=== PATIENT | female | born 1995 | race Caucasian/White ===

== ENCOUNTER 2021-08-04 21:32 | Inpatient (IN) ==
[2021-08-04] MEDS ORDERED: Lidocaine/Epineph/Tetraca GEL 3 ML GEL IN SYR TOPICAL ONE (22:30)
[2021-08-05 00:39] LABS: Body Fluid Source Cerebral Spinal
[2021-08-05 01:00] LABS: CSF Glucose 56 mg/dL (40-70)
[2021-08-05 01:16] LABS: Body Fluid Appearance Clear; Body Fluid Color Colorless; CSF Tube # 3
[2021-08-05 01:48] LABS: Body Fluid WBC 1 /mcL
[2021-08-05] MEDS ORDERED: methylPREDNISolone 125 mg 2 ML VIAL IV ONE (10:38)
[2021-08-05] MEDS ORDERED: methylPREDNISolone SOD SUCC 1000 MG in NS 0.9% 100 ML IVPB ONE (11:00)
[2021-08-05] MEDS ORDERED: Ondansetron 4 mg VIAL 2 MG/ML 2 ml VIAL IV PRN (11:29)
[2021-08-05 12:23] LABS: ABS Basophils 0.1 10^3/ul (0-0.2); ABS Eosinophils 0.2 10^3/ul (0-0.6); ABS Lymphocytes 3.2 10^3/ul (1.0-4.8); ABS Monocytes 0.7 10^3/ul (0-0.8); ABS Neutrophils 7.6 10^3/ul (1.5-7.7); Eosinophil % 1.6 %; Hematocrit 41 % (35-47); Hemoglobin 14.1 g/dL (12.0-16.0); Mean Corpuscular HGB Conc 34 g/dL (31-36); Mean Corpuscular Hemoglobin 30 pg (27-31); Mean Corpuscular Volume 87 fL (80-97); Mean Platelet Volume 9.4 fL (7.4-10.4); Platelet Count 267 10^3/uL (150-450); Red Blood Count 4.76 10^6 /uL (3.70-4.87); Red Cell Distribution Width 12 % (10-15); White Blood Count 11.8 10^3/uL (3.5-10.8)
[2021-08-05] MEDS ORDERED: Lactated Ringers 1000 ml BAG 1,000 ML IV ONE (12:24)
[2021-08-05 12:40] LABS: ALT 18 U/L (7-52); AST 14 U/L (13-39); Albumin 4.2 g/dL (3.2-5.2); Albumin/Globulin Ratio 1.4 (1-3); Alkaline Phosphatase 66 U/L (35-149); Anion Gap 5 mmol/L (2-11); Blood Urea Nitrogen 13 mg/dL (6-24); CO2 Carbon Dioxide 27 mmol/L (22-32); Calcium 9.5 mg/dL (8.6-10.3); Chloride 106 mmol/L (101-111); Globulin 2.9 g/dL (2-4); Glucose 113 mg/dL (70-100); Potassium 3.7 mmol/L (3.5-5.0); Sodium 138 mmol/L (135-145); Total Protein 7.1 g/dL (6.4-8.9); eGFR CKD-EPI 98.8 (>60)
[2021-08-05 12:55] LABS: Rheumatoid Factor < 10 IU/mL (<15)
[2021-08-05 13:20] LABS: Folate 10.68 ng/mL (5.90-24.80)
[2021-08-05 13:21] LABS: Vitamin B12 312 pg/mL (180-914)
[2021-08-05] MEDS ORDERED: Cholecalciferol (VIT D3) 50,000 UNIT CAP (NF) PO SCH (15:00)
[2021-08-05 15:01] LABS: Erythrocyte Sed Rate 19 mm/Hr (0-19)
[2021-08-06] MEDS: methylPREDNISolone SOD SUCC 1,000 MG in NS 0.9% 250 ml 250 ML IVPB SCH (08:52)
[2021-08-06] MEDS ORDERED: Polyethylene Glycol 3350 17 GM PACKET PO PRN (14:32)
[2021-08-07] MEDS: methylPREDNISolone SOD SUCC 1,000 MG in NS 0.9% 250 ml 250 ML IVPB SCH (08:33)
[2021-08-07 11:49] VITALS: BP 116/73
[2021-08-07 14:46] LABS: HSV 1 PCR, CSF Negative (Negative); HSV 2 PCR, CSF Negative (Negative)
[2021-08-07 15:24] LABS: TSH Ultra Thyroid Stim Horm 0.92 mcIU/mL (0.34-5.60)
[2021-08-07 17:20] LABS: Phospholipid Ab IgG < 9.4 GPL; Phospholipid Ab IgM, S 17.8 MPL
[2021-08-07 17:27] LABS: CSF Oligoclonal Bands 0 bands; Oligoclonal Proteins Interpret 0 bands (<2); Serum Oligoclonal Bands 0 bands
[2021-08-08 11:24] LABS: Protein C Activity 126 % (70 - 150)
[2021-08-08 11:37] LABS: B. garinii/B. afzellii PCR Negative (Negative); Lyme Disease Source CSF
[2021-08-08 14:00] LABS: CSF VDRL Negative (Negative)
[2021-08-09 12:07] LABS: Prothrombin 20210 Mutation Negative (Negative)
[2021-08-09 15:43] LABS: Factor V Leiden Mutation Negative (Negative)
[2021-08-10 08:43] LABS: NMO/AQP4 IgG Negative (Negative)
== END 2021-08-07 15:20 | disposition home or self-care (01) | DRG 58 ==
LOC: ED 21:32 → EDHOLD 08-05 11:29 → MEDTELE 08-05 15:10
PROVIDERS: ADMIT Internal Medicine; ATTEND Internal Medicine